=== PATIENT | male | born 1980 | race Caucasian/White ===

== ENCOUNTER 2017-12-14 12:09 | Emergency (ER) | payer BC, OTHER ==
[~2017-12-14] VITALS: Ht 188 cm; Wt 109.0 kg
[~2017-12-14 12:09] MED LIST: ASPI325T PO; CYCL-36 PO; DICY10 PO; FISH100020 PO; GABA300C3 PO; MOBI15TA PO; PARO30TA PO; PROT40TA PO; RANI150T PO; SUCR1S PO; SUMA6P SQ; TEST200I13 IM
[2017-12-14 12:12] VITALS: BP 148/62; PULSE 66; RESP 20; TEMP 98; O2SAT 98
[2017-12-14] MEDS ORDERED: SODIUM CHLOR 0.9% 1000 ML INJ 1,000 ML IV SCH (12:51)
[2017-12-14] MEDS ORDERED: MORPHINE SULFATE 4 MG/ML INJ IV PUSH ONE ×2 (13:00→14:45)
[2017-12-14] MEDS ORDERED: KETOROLAC TROMETHAMINE 30 MG/ML (IVP) VIAL IVP ONE (13:00)
[2017-12-14] MEDS ORDERED: ONDANSETRON HCL 4 MG/2 ML VIAL IVP ONE (13:00)
[2017-12-14] MEDS ORDERED: SODIUM CHLORIDE 0.9% FLUSH 10 ML FLUSH IV FLUSH PRN (13:00)
[2017-12-14] MEDS ORDERED: SODIUM CHLOR 0.9% 1000 ML INJ 1,000 ML IV ONE (13:00)
[2017-12-14 13:05] LABS: BASOPHIL # 0.1 TH/MM3 (0-0.2); BASOPHIL % 0.8 % (0.0-2.0); EOSINOPHIL # 0.2 TH/MM3 (0-0.4); EOSINOPHIL % 1.7 % (0.0-4.0); HEMATOCRIT 48.7 % (39.0-51.0); HEMOGLOBIN 17.1 GM/DL (13.0-17.0); LYMPH % 17.6 % (9.0-44.0); LYMPHOCYTE # 1.9 TH/MM3 (1.0-4.8); MEAN CELL VOLUME 87.7 FL (80.0-100.0); MEAN CORPUSCULAR HEMOGLOBIN 30.8 PG (27.0-34.0); MEAN CORPUSCULAR HGB CONC 35.1 % (32.0-36.0); MEAN PLATELET VOLUME 8.6 FL (7.0-11.0); MONO % 5.8 % (0.0-8.0); MONOCYTE # 0.6 TH/MM3 (0-0.9); NEUT % 74.1 % (16.0-70.0); PLATELET COUNT 255 TH/MM3 (150-450); RED BLOOD COUNT 5.55 MIL/MM3 (4.50-5.90); RED CELL DISTRIBUTION WIDTH 13.4 % (11.6-17.2); WHITE BLOOD COUNT 10.8 TH/MM3 (4.0-11.0)
[2017-12-14 13:21] LABS: AST (GOT) 27 U/L (15-37); BICARBONATE 26.2 MEQ/L (21.0-32.0); BLOOD UREA NITROGEN 10 MG/DL (7-18); CALCIUM 8.8 MG/DL (8.5-10.1); CHLORIDE 107 MEQ/L (98-107); CREATININE 1.53 MG/DL (0.60-1.30); GLOMERULAR FILTRATION RATE 51 ML/MIN (>89); GLUCOSE,RANDOM 92 MG/DL (74-106); SODIUM (NA) 141 MEQ/L (136-145)
[2017-12-14 13:22] LABS: ALT (GPT) 38 U/L (12-78)
[2017-12-14 13:25] LABS: ALKALINE PHOSPHATASE 65 U/L (45-117); TOTAL BILIRUBIN ADULT 0.7 MG/DL (0.2-1.0); TOTAL PROTEIN 7.6 GM/DL (6.4-8.2)
[2017-12-14 13:46] LABS: BILIRUBIN, URINE NEG (NEG); BLOOD, URINE LARGE (NEG); GLUCOSE,URINE NEG (NEG); KETONE, URINE TRACE mg/dL (NEG); MUCUS URINE MANY /lpf (OCC); NITRITE,URINE NEG (NEG); SQUAMOUS EPITHELIAL CELL URINE <1 /hpf (0-5); URINE COLOR YELLOW (YELLW/STRAW); URINE LEUKOCYTE ESTERASE NEG (NEG)
--- NOTE | 2017-12-14 14:58 | RADRPT ---
EXAM DATE/TIME: 12/14/2017 13:41 [place] COMPARISON: No previous studies available for comparison. INDICATIONS : Right lower quadrant pain. ORAL CONTRAST: No oral contrast ingested. RADIATION DOSE: 16.88 CTDIvol (mGy) MEDICAL HISTORY : Renal calculi. SURGICAL HISTORY : None. ENCOUNTER: Initial ACUITY: 4 - 6 days PAIN SCALE: 5/10 LOCATION: Right lower quadrant TECHNIQUE: Volumetric scanning of the abdomen and pelvis was performed. Using automated exposure control and ad justment of the mA and/or kV according to patient size, radiation dose was kept as low as reasonably achievable to obtain optimal diagnostic quality images. DICOM format image data is available electro nically for review and comparison. FINDINGS: LOWER LUNGS: The visualized lower lungs are clear. LIVER: Homogeneous density without lesion. There is no dilation of the biliary tree. No calcified gallston es. SPLEEN: Normal size without lesion. PANCREAS: Within normal limits. KIDNEYS: There is a 14 mm low-density lesion at the upper pole the right kidney with density measurements cons istent with a cyst. In the right lower pole kidney there are 2 adjacent 3 mm nonobstructing stones. T here is mild asymmetric distention of the right collecting system and there is mild right hydroureter caused by a 3 mm stone in the right proximal ureter. Left kidney is within normal limits. ADRENAL GLANDS: Within normal limits. VASCULAR: There is no aortic aneurysm. BOWEL/MESENTERY: The stomach, small bowel, and colon demonstrate no acute abnormality. There is no free intraperitone al air or fluid. Appendix and terminal ileum are normal. ABDOMINAL WALL: Within normal limits. RETROPERITONEUM: There is no lymphadenopathy. BLADDER: No wall thickening or mass. REPRODUCTIVE: Within normal limits. INGUINAL: There is no lymphadenopathy or hernia. MUSCULOSKELETAL: No acute abnormality is identified. CONCLUSION: 1. The patient's pain is caused by a 3 mm stone in the right proximal ureter causing mild asymmetric distention of the right collecting system and ureter. 2. There are 2 additional nonobstructing stones in the right lower pole collecting system measuring a pproximately 3 mm each. 3. There is a 14 mm simple appearing right upper pole renal cyst. Dewayne Aguilar MD on December 14, 2017 at 14:51 Board Certified Radiologist. This report was verified electronically.
[2017-12-14] MEDS ORDERED: TAMS5CAP PO (15:11)
[2017-12-14] MEDS ORDERED: PERC5TAB12 PO (15:11)
--- NOTE | 2017-12-14 15:11 | PD ---
HPI Chief Complaint: Abdominal Pain Time Seen by Provider: 12:47 Travel History International Travel<30 days: No Contact w/Intl Traveler<30days: No Traveled to known affect area: No History of Present Illness HPI Is a 37-year-old man presents to the emergency department complaining of abdominal pain. Pain is low in the right side the abdomen. Started abruptly last night. He otherwise had been feeling generally well and healthy prior to this. He has had kidney stones in the past. Also had other GI problems including some chronic pain that resulted in opioid use and gastroparesis resulting from a injury in [place]. That has been several years. He has also had gallbladder disease with symptomatic cholelithiasis. He otherwise had been feeling generally well and healthy prior to that. History Past Medical History Medical History: Denies Significant Hx Social History Alcohol Use: No Tobacco Use: No Allergies-Medications (Allergen,Severity, Reaction): Coded Allergies: latex (Unverified Allergy, Severe, Rash, 12/14/17) penicillin G (Unverified Allergy, Severe, Anaphylaxis, 12/14/17) Reported Meds & Prescriptions Reported Meds & Active Scripts Active Bentyl (Dicyclomine HCl) 10 Mg Cap 10 Mg PO QID Carafate 1 Gm/10 Ml Udc (Sucralfate) 1 Gm/10 Ml Susp 1 Gm PO TIDACHS 30 Days Take with water on an empty stomach. To reduce the potential of adversely affecting the absorption of other drugs, take other drugs 2 hours prior to Sucralfate. Ranitidine 150 mg (Ranitidine HCl) 150 Mg Tab 1 Tab PO BID Protonix (Pantoprazole Sodium) 40 Mg Tab 40 Mg PO DAILY Reported Imitrex (Sumatriptan Succinate) 6 Mg/0.5 Ml Inj 6 Mg SQ PRN Flexeril (Cyclobenzaprine HCl) 10 Mg Tab 10 Mg PO TID Fish Oil (Verplanck-3 Fatty Acids) 1,000 Mg Cap 1,000 Mg PO TID Paroxetine Hcl 30 Mg Tab 30 Mg PO DAILY Aspirin 325 Mg Tab (Aspirin) 325 Mg Tab 325 Mg PO DAILY Testosterone Cypionate 200 Mg/Ml Inj 250 Mg IM EVERY 10 DAYS Mobic (Meloxicam) 15 Mg Tab 15 Mg PO DAILY Gabapentin 300 Mg Cap 350 Mg PO TID Review of Systems Except as stated in HPI: all other systems reviewed are Neg Physical Exam Narrative GENERAL: Well-appearing 37-year-old man, uncomfortable, nontoxic SKIN: Focused skin assessment warm/dry. HEAD: Atraumatic. Normocephalic. EYES: Pupils equal and round. No scleral icterus. No injection or drainage. ENT: No nasal bleeding or discharge. Mucous membranes pink and moist. NECK: Trachea midline. No JVD. CARDIOVASCULAR: Regular rate and rhythm. No murmur appreciated. RESPIRATORY: No accessory muscle use. Clear to auscultation. Breath sounds equal bilaterally. GASTROINTESTINAL: Abdomen is flat and soft. Minimal tenderness in the right lower quadrant. MUSCULOSKELETAL: No obvious deformities. No clubbing. No cyanosis. No edema. NEUROLOGICAL: Awake and alert. No obvious cranial nerve deficits. Motor grossly within normal limits. Normal speech. PSYCHIATRIC: Appropriate mood and affect; insight and judgment normal. Data Data Last Documented VS Vital Signs Date Time Temp Pulse Resp B/P (MAP) Pulse Ox O2 Delivery O2 Flow Rate FiO2 12/14/17 12:12 98.0 66 20 148/62 (90) 98 Orders Orders Complete Blood Count With Diff (12/14/17 12:51) Comprehensive Metabolic Panel (12/14/17 12:51) Lipase (12/14/17 12:51) Urinalysis - C+S If Indicated (12/14/17 12:51) Ct Abd/Pel W/O Iv Contrast (12/14/17 12:51) Iv Access Insert/Monitor (12/14/17 12:51) Ecg Monitoring (12/14/17 12:51) Oximetry (12/14/17 12:51) NPO (12/14/17 12:51) Morphine Inj (Morphine Inj) (12/14/17 13:00) Ondansetron Inj (Zofran Inj) (12/14/17 13:00) Sodium Chlor 0.9% 1000 Ml Inj (Ns 1000 M (12/14/17 12:51) Sodium Chloride 0.9% Flush (Ns Flush) (12/14/17 13:00) Ketorolac Inj (Toradol Inj) (12/14/17 13:00) Sodium Chlor 0.9% 1000 Ml Inj (Ns 1000 M (12/14/17 13:00) Morphine Inj (Morphine Inj) (12/14/17 14:45) Labs Laboratory Tests Test 12/14/17 12:55 12/14/17 13:22 White Blood Count 10.8 TH/MM3 Red Blood Count 5.55 MIL/MM3 Hemoglobin 17.1 GM/DL Hematocrit 48.7 % Mean Corpuscular Volume 87.7 FL Mean Corpuscular Hemoglobin 30.8 PG Mean Corpuscular Hemoglobin Concent 35.1 % Red Cell Distribution Width 13.4 % Platelet Count 255 TH/MM3 Mean Platelet Volume 8.6 FL Neutrophils (%) (Auto) 74.1 % Lymphocytes (%) (Auto) 17.6 % Monocytes (%) (Auto) 5.8 % Eosinophils (%) (Auto) 1.7 % Basophils (%) (Auto) 0.8 % Neutrophils # (Auto) 8.0 TH/MM3 Lymphocytes # (Auto) 1.9 TH/MM3 Monocytes # (Auto) 0.6 TH/MM3 Eosinophils # (Auto) 0.2 TH/MM3 Basophils # (Auto) 0.1 TH/MM3 CBC Comment DIFF FINAL Differential Comment Blood Urea Nitrogen 10 MG/DL Creatinine 1.53 MG/DL Random Glucose 92 MG/DL Total Protein 7.6 GM/DL Albumin 4.0 GM/DL Calcium Level 8.8 MG/DL Alkaline Phosphatase 65 U/L Aspartate Amino Transf (AST/SGOT) 27 U/L Alanine Aminotransferase (ALT/SGPT) 38 U/L Total Bilirubin 0.7 MG/DL Sodium Level 141 MEQ/L Potassium Level 3.8 MEQ/L Chloride Level 107 MEQ/L Carbon Dioxide Level 26.2 MEQ/L Anion Gap 8 MEQ/L Estimat Glomerular Filtration Rate 51 ML/MIN Lipase 186 U/L Urine Color YELLOW Urine Turbidity CLEAR Urine pH 6.0 Urine Specific [place] 1.022 Urine Protein 30 mg/dL Urine Glucose (UA) NEG mg/dL Urine Ketones TRACE mg/dL Urine Occult Blood LARGE Urine Nitrite NEG Urine Bilirubin NEG Urine Urobilinogen LESS THAN 2.0 MG/DL Urine Leukocyte Esterase NEG Urine RBC /hpf Urine WBC 6 /hpf Urine Squamous Epithelial Cells <1 /hpf Urine Mucus MANY /lpf Microscopic Urinalysis Comment CULT NOT INDICATED MDM Medical Decision Making Medical Screen Exam Complete: Yes Emergency Medical Condition: Yes Interpretation(s) LABS: CBC is unremarkable. CMP unremarkable. Lipase is normal. UA with hematuria. CT with 3 mm stone in the right proximal ureter causing mild asymmetric distention of the right collecting system. 2 additional nonobstructing stones in the right lower pole each measuring about 3 mm. 14 mm simple cyst in the right upper pole. Differential Diagnosis Renal lithiasis, appendicitis, cholecystitis, other Narrative Course Medical decision-making 37-year-old man with abrupt onset right lower quadrant abdominal pain found to have renal lithiasis. Looks well. Symptoms are improved. Recommend close outpatient follow-up. Diagnosis Primary Impression: Renal lithiasis Additional Instructions: Take medications as prescribed. Follow with her primary doctor in the next 2-4 days if not completely well. Return emerged department with abdominal pain, high fevers, vomiting, or any other new or worsening symptoms. Med/Other Pt SpecificInfo: Prescription(s) given Scripts Tamsulosin (Flomax) 0.4 Mg Cap 0.4 MG PO HS for Manage Prostate Problems, #14 CAP 0 Refills Prov: Juan Grey MD 12/14/17 Oxycodone-Acetaminophen (Percocet) 5-325 mg Tab 1-2 TAB PO Q6H Y for PAIN, #21 TAB 0 Refills Prov: Juan Grey MD 12/14/17 Disposition: 01 DISCHARGE HOME Condition: Stable Juan Grey MD December 14, 2017 15:11
[2017-12-14] MEDS ORDERED: ONDA4TAB7 SL (15:19)
[2017-12-14] MEDS ORDERED: NAPR500T2 PO (15:19)
--- NOTE | 2017-12-14 15:19 | PD ---
Data Data Last Documented VS Vital Signs Date Time Temp Pulse Resp B/P (MAP) Pulse Ox O2 Delivery O2 Flow Rate FiO2 12/14/17 12:12 98.0 66 20 148/62 (90) 98 Orders Orders Complete Blood Count With Diff (12/14/17 12:51) Comprehensive Metabolic Panel (12/14/17 12:51) Lipase (12/14/17 12:51) Urinalysis - C+S If Indicated (12/14/17 12:51) Ct Abd/Pel W/O Iv Contrast (12/14/17 12:51) Iv Access Insert/Monitor (12/14/17 12:51) Ecg Monitoring (12/14/17 12:51) Oximetry (12/14/17 12:51) NPO (12/14/17 12:51) Morphine Inj (Morphine Inj) (12/14/17 13:00) Ondansetron Inj (Zofran Inj) (12/14/17 13:00) Sodium Chlor 0.9% 1000 Ml Inj (Ns 1000 M (12/14/17 12:51) Sodium Chloride 0.9% Flush (Ns Flush) (12/14/17 13:00) Ketorolac Inj (Toradol Inj) (12/14/17 13:00) Sodium Chlor 0.9% 1000 Ml Inj (Ns 1000 M (12/14/17 13:00) Morphine Inj (Morphine Inj) (12/14/17 14:45) Ed Discharge Order (12/14/17 15:11) Labs Laboratory Tests Test 12/14/17 12:55 12/14/17 13:22 White Blood Count 10.8 TH/MM3 Red Blood Count 5.55 MIL/MM3 Hemoglobin 17.1 GM/DL Hematocrit 48.7 % Mean Corpuscular Volume 87.7 FL Mean Corpuscular Hemoglobin 30.8 PG Mean Corpuscular Hemoglobin Concent 35.1 % Red Cell Distribution Width 13.4 % Platelet Count 255 TH/MM3 Mean Platelet Volume 8.6 FL Neutrophils (%) (Auto) 74.1 % Lymphocytes (%) (Auto) 17.6 % Monocytes (%) (Auto) 5.8 % Eosinophils (%) (Auto) 1.7 % Basophils (%) (Auto) 0.8 % Neutrophils # (Auto) 8.0 TH/MM3 Lymphocytes # (Auto) 1.9 TH/MM3 Monocytes # (Auto) 0.6 TH/MM3 Eosinophils # (Auto) 0.2 TH/MM3 Basophils # (Auto) 0.1 TH/MM3 CBC Comment DIFF FINAL Differential Comment Blood Urea Nitrogen 10 MG/DL Creatinine 1.53 MG/DL Random Glucose 92 MG/DL Total Protein 7.6 GM/DL Albumin 4.0 GM/DL Calcium Level 8.8 MG/DL Alkaline Phosphatase 65 U/L Aspartate Amino Transf (AST/SGOT) 27 U/L Alanine Aminotransferase (ALT/SGPT) 38 U/L Total Bilirubin 0.7 MG/DL Sodium Level 141 MEQ/L Potassium Level 3.8 MEQ/L Chloride Level 107 MEQ/L Carbon Dioxide Level 26.2 MEQ/L Anion Gap 8 MEQ/L Estimat Glomerular Filtration Rate 51 ML/MIN Lipase 186 U/L Urine Color YELLOW Urine Turbidity CLEAR Urine pH 6.0 Urine Specific [place] 1.022 Urine Protein 30 mg/dL Urine Glucose (UA) NEG mg/dL Urine Ketones TRACE mg/dL Urine Occult Blood LARGE Urine Nitrite NEG Urine Bilirubin NEG Urine Urobilinogen LESS THAN 2.0 MG/DL Urine Leukocyte Esterase NEG Urine RBC /hpf Urine WBC 6 /hpf Urine Squamous Epithelial Cells <1 /hpf Urine Mucus MANY /lpf Microscopic Urinalysis Comment CULT NOT INDICATED MDM Supervised Visit with [facility]GARD: Yes Diagnosis Primary Impression: Renal lithiasis Departure Forms: Tests/Procedures, Work Release Enter return to work date: December 20, 2017 Additional Instruction: Take medications as prescribed. Follow with her primary doctor in the next 2-4 days if not completely well. Return emerged department with abdominal pain, high fevers, vomiting, or any other new or worsening symptoms. Med/Other Pt SpecificInfo: Prescription(s) given Scripts Ondansetron Odt (Ondansetron Odt) 4 Mg Tab 4 MG SL Q8HR Y for Nausea/Vomiting, #12 TAB 0 Refills Prov: Juan Grey MD 12/14/17 Naproxen (Naproxen) 500 Mg Tab 500 MG PO BID, #20 TAB 0 Refills Prov: Juan Grey MD 12/14/17 Tamsulosin (Flomax) 0.4 Mg Cap 0.4 MG PO HS for Manage Prostate Problems, #14 CAP 0 Refills Prov: Juan Grey MD 12/14/17 Oxycodone-Acetaminophen (Percocet) 5-325 mg Tab 1-2 TAB PO Q6H Y for PAIN, #21 TAB 0 Refills Prov: Juan Grey MD 12/14/17 Disposition: 01 DISCHARGE HOME Condition: Stable Juan Grey MD December 14, 2017 15:19
[2017-12-14] MEDS ORDERED: oxyCODONE/ACETAMINOPHEN 5 MG/325 MG TAB PO ONE (16:00)
== END 2017-12-14 17:02 | disposition home or self-care (01) ==
LOC: NEPE 12:09
DX: N20.2 Calculus of kidney with calculus of ureter (principal); N28.1 Cyst of kidney, acquired; Z87.442 Personal history of urinary calculi; Z88.0 Allergy status to penicillin; Z79.899 Other long term (current) drug therapy
CPT/HCPCS: 74176; 80053; 81001; 83690; 85025; 96361; 96374; 96375; 96376; 99284; J1885; J2270; J2405; J7030